=== PATIENT | male | born 1975 | race Caucasian/White ===

== ENCOUNTER 2020-11-03 15:31 | Emergency (ER) | payer OTHER, SELFPAY ==
--- NOTE | 2020-11-03 15:36 | ED.WOUNDLAC ---
HPI - Wound/Laceration General Chief Complaint: Wound/Laceration Stated Complaint: rt thumb laceration Time Seen by Provider: 11/03/20 15:36 Source: patient and RN notes reviewed History of Present Illness HPI narrative: Patient is a 45-year-old male who presents the urgent care with complaints of a laceration to the right thumb. Patient states that he had been doing repairs at a friend's house and was using a brand-new utility knife with a new blade, and sliced the right thumb. Patient states that the injury occurred approximately 3 hours ago. States that he went to another facility in [place], who wrapped the thumb but sent him on his way due to not excepting his insurance. Patient states he then went to our [place] location who turned him away because he did not have his insurance card . Patient denies of any other injuries. No other acute complaints. States that he has had a tetanus shot recently. Patient aware of the plan of care. Some parts of this dictation were generated by voice recognition software and may contain typographical and/or grammatical inaccuracies. Related Data Home Medications Medication Instructions Recorded Confirmed cyclobenzaprine [Flexeril] 10 mg PO HS 11/03/20 11/03/20 gabapentin 300 mg PO TID 11/03/20 11/03/20 oxycodone-acetaminophen 10 - 325 tablet PO TID 11/03/20 11/03/20 zolpidem 10 mg PO HS PRN 11/03/20 11/03/20 Allergies Allergy/AdvReac Type Severity Reaction Status Date / Time aspirin Allergy Unknown Nausea Verified 11/03/20 15:40 Sulfa (Sulfonamide Allergy Unknown Rash Verified 11/03/20 15:40 Antibiotics) Review of Systems Review of Systems: Narrative: CONSTITUTIONAL: Denies fever, chills, or sweats. EYES: Denies visual changes, redness, or discharge. ENT: Denies rhinorrhea, congestion, sore throat, or otalgia. CARDIOVASCULAR: Denies chest pain, palpitations, or edema. RESPIRATORY: Denies cough or dyspnea. GASTROINTESTINAL: Denies abdominal pain, nausea, vomiting, or diarrhea. GENITOURINARY: Denies dysuria or hematuria. SKIN: Reports of a laceration to the right thumb MUSCULOSKELETAL: Denies back pain, joint pain, or myalgia. NEUROLOGIC: Denies headache, numbness, or weakness. All other systems reviewed are negative, except as documented in HPI. PMFSH Comments At the time of my signature, I reviewed and agree with the nursing past medical, surgical, social, and family history. There is no relevant family history pertinent to the patient complaint. Exam Narrative: Exam Narrative: GENERAL: This is a well-nourished, well-developed patient, in no apparent distress. HEAD: normocephalic, atraumatic. EYES: PERRL. Sclera clear/white. Vision is grossly intact. EARS: External ears normal NOSE: External nose normal with no obvious nasal discharge, nares without redness, no rhinorrhea. THROAT: Mucous membranes moist NECK: Neck supple SKIN: 3 cm linear laceration noted to the ulnar aspect of the right thumb without nailbed involvement. Extending between the PIP and the MCP. NEURO: awake, alert, and oriented to person, place and time. There were no obvious focal neurologic abnormalities. EXTREMITIES: Range of motion to right thumb within normal limits with capillary refill less than 2 seconds. Positive strong right radial pulse. Course Vital Signs Vital signs: Vital Signs Temperature 99.4 F 11/03/20 15:39 Pulse Rate 122 H 11/03/20 15:39 Respiratory Rate 20 11/03/20 15:39 Blood Pressure 151/93 H 11/03/20 15:39 Pulse Oximetry 99 11/03/20 15:39 Temperature 99.4 F 11/03/20 15:45 Pulse Rate 122 H 11/03/20 15:45 Respiratory Rate 20 11/03/20 15:45 Blood Pressure 151/93 H 11/03/20 15:45 Pulse Oximetry 99 11/03/20 15:45 Reviewed-patient is informed that they may have pre-hypertension or hypertension based on a blood pressure reading in the department. I recommend the patient call the primary care provider listed on their discharge instructions o
[2020-11-03 15:39] VITALS: BP 151/93; PULSE 122; RESP 20; TEMP 37.4; O2SAT 99
[2020-11-03 15:45] VITALS: BP 151/93; PULSE 122; RESP 20; TEMP 37.4; O2SAT 99
== END 2020-11-03 16:13 | disposition home or self-care (01) ==
PROVIDERS: Emergency Provider Nurse Practitioner Family; PCP Nurse Practitioner Family
DX: S61.011A Laceration without foreign body of right thumb without damage to nail, initial encounter (principal); W26.0XXA Contact with knife, initial encounter
CPT/HCPCS: 12001; 99203; G0463

== ENCOUNTER 2024-06-29 07:46 | Day surgery (SDC) | payer OTHER, SELFPAY ==
[2024-06-24 10:18] VITALS: BMI 23.7
--- NOTE | ~2024-06-29 | XR_ITS ---
INTRAOPERATIVE FLUOROSCOPY: CLINICAL HISTORY: 49 years old Male; LEFTWARD C6-7 INJ PROCEDURE COMMENTS: Limited intraoperative fluoroscopy of the cervical spine was performed. CUMULATIVE DOSE: 2.3 mGy FLUOROSCOPY TIME: 14.6 seconds FINDINGS/IMPRESSION: Intraoperative fluoroscopic views demonstrate injection needle in good location, within the area of c linical concern. Please refer to operative note for further details. Reviewed, dictated and finalized at location A.
--- NOTE | 2024-06-29 07:57 | WPDHPUPDATE1 ---
History and Physical Update Update Date/Time: 06/29/24 07:57 History and Physical has been reviewed, including an updated exam of the patient. There are NO changes in the patient's condition. Risks, benefits, and alternatives have been discussed and questions answered. Patient agrees to proceed with procedure.
--- NOTE | 2024-06-29 07:58 | W.PM.PROC2 ---
Procedure Note - Detailed Date of Procedure 06/29/24 Pre-op Diagnosis Cervical Spondylosis Post-op Diagnosis Same Procedure Performed Leftward Cervical Interlaminar Epidural Steroid Injection at C6-7 under Fluoroscopic Guidance and with Contrast Control. Surgeon Denton Raymundo MD Anesthesia Local Description of Procedure INFORMED CONSENT: Risks, benefits and alternatives to the procedure were discussed in detail with the patient who expressed explicit understanding and consent to proceed. Patient was informed verbally and in written form regarding the risks associated with the procedure including the low risk of serious infection, bleeding/bruising, allergic reaction, nerve or organ injury, paralysis, procedural site pain or discomfort, worsening pain and/or mobility, failure to treat and/or disfigurement. The patient expressed explicit understanding and consent to proceed. All materials required for the procedure were available prior to procedure start. Site and side was marked prior to procedure and confirmed in the presence of the patient. PROCEDURE IN DETAIL: The patient was brought to the procedural suite and placed in the prone position. Patient's head was positioned and stabilized with a ProneView pillow or equivalent. Patient was made comfortable with use of pillows under the chest, hips and ankles. Skin overlying the injection site was prepared broadly with ChloraPrep applicator and draped in a sterile manner. Aseptic technique was employed throughout. The endplates of the vertebral body at the site of interest were aligned in the AP view. Slight caudad tilt and ipsilateral oblique angulation was utilized to optimize visualization of the targeted posterior intervertebral foramen at C6-7. Local anesthesia was established by infiltration with approximately 5 mL of 2% lidocaine via a 1-1/2 inch 27-gauge needle. A 20-gauge 4-inch Tuohy epidural needle was advanced intermittently until appropriate loss of resistance to air was identified via plastic loss of resistance syringe. Lateral view was used to confirm the appropriate positioning of the needle tip within the posterior epidural space. In the AP view, 2.0 mL of Omnipaque 300 contrast medium was injected after negative aspiration for CSF, blood or other bodily fluid, showing appropriate epidural spread of contrast without evidence of intravascular or intrathecal placement. After negative repeat aspiration for CSF, blood or other bodily fluid, A 4 mL solution containing 6 mg of betamethasone in sterile PF Normal Saline was injected after negative repeat aspiration. Appropriate spread of the injectate was confirmed with washout of previously injected contrast. No parasthesias were elicited. Needle was removed completely intact without difficulty. Images were saved and documented in the patient chart. Patient's skin was cleansed and sterile bandage applied. The patient tolerated the procedure well. The patient was transported to the recovery area in stable condition where they were observed for an appropriate amount of time prior to discharge, without evidence of complication. The patient was instructed to avoid excessive activity for the next 48 hours, including overhead work, reaching or extended device/computer usage. Showers only for 48 hours. They were instructed not to drive or operate heavy machinery for 24 hours. They are to monitor for severe headaches, fevers, chills, night sweats, erythema/swelling at the site or any other signs of infection, bleeding/bruising, bowel or bladder changes as well as new pain, weakness or numbness in the upper or lower extremity. Should they notice these changes, they are instructed to call our office immediately or report directly to the nearest Emergency Department if no answer or if after posted office hours. CONTRAST WASTED: 28mL Omnipaque 300. COMMENTS: patient remained purposefully quiet responding verbally but appropriately only when directly addressed througho
[2024-06-29 08:06] VITALS: BMI 24.2
[2024-06-29 08:07] VITALS: BP 150/93; PULSE 87; RESP 18; TEMP 37.2; O2SAT 98
[2024-06-29 08:21] VITALS: BP 181/87; PULSE 83; RESP 16; O2SAT 97
[2024-06-29 08:26] VITALS: BP 163/75; PULSE 78; RESP 16; O2SAT 96
[2024-06-29] MEDS: BETAMETHASONE SODIUM PHOSPHATE PF INJ 6 MG/ML VIAL INFILTRATE (08:28)
[2024-06-29 08:30] VITALS: BP 168/88; PULSE 73; RESP 18; O2SAT 98
[2024-06-29] MEDS: LIDOCAINE HCL 1% PF INJ 5 ML VIAL 4 ML XX (08:30)
== END 2024-06-29 08:46 | disposition home or self-care (01) ==
PROVIDERS: Visit Provider Anesthesiology Pain Medicine
PROC: (CPT 62321; principal; 2024-06-29 08:45)
DX: M47.812 Spondylosis without myelopathy or radiculopathy, cervical region (principal)
CPT/HCPCS: 62321; 99199

== ENCOUNTER 2024-08-25 10:04 | Outpatient (RCR) | payer OTHER, SELFPAY ==
--- NOTE | 2024-08-25 11:37 | OPREHPOC ---
Outpatient Therapy Plan of Care This is a Multidisciplinary Plan of Care that may contain components documented by all disciplines (PT, OT, and ST.) PT Problem 1 PT Problem #1 Knowledge Deficit PT Goal 1 Goal / Goal Update *indep with HEP Target Visit 8 PT Problem 2 PT Problem #2 Pain PT Goal 1 Goal / Goal Update *pt report pain rating at worst of 7/10 Target Visit 8 PT Goal 2 Goal / Goal Update * self assessment Neck Disability Index rating of 22% limitation in activity * pt report 3 headaches a week Target Visit 8 PT Problem 3 PT Problem #3 Impaired Flexibility PT Goal 1 Goal / Goal Update improve cervical rotation to L to improve ability to drive and do home & work tasks active to 50' Target Visit 8 PT Goal 2 Goal / Goal Update * pt perform 3 reps without an increase in pain reported: cervical rotation L and side bend L Target Visit 8 PT Problem 4 PT Problem #4 Impaired Strength PT Goal 1 Goal / Goal Update increase strength of cervical and thoracic musculature for improved posture and position of spine: able to perform 20 reps of strengthening exercises on mat and standing positions Target Visit 8
--- NOTE | 2024-08-25 11:37 | PTOPEVAL1 ---
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; R hand dominant; Reported Pain Level Pain Score Self Report Additional Pain Score Comments pain in neck, upper back and shoulders R and L; pain R shoulder> L; pain range in the past week 1-07/01; neck, hands numb and tingle intermittent; pain in back-- disrupts sleep; have to sleep in recliner to get neck comfortable; decrease pain: heat and rest; pain patch prescription; increase pain: activity; headaches every day, last about 1/2 day, take over the counter meds; Assessment PT Clinical Summary Marco has the diagnosis of cervical radiculopathy, into both UE's with intermittent numbness and tingling into hands. He also reports headaches, R and L shoulder and thoracic pain. Self assessment functional score with Neck Index rating of 30% limitation in activity level. The cervical injections decreased his pain for a few days and he is scheduled for another injection in a few weeks. He currently works [employer], as pain allows, in construction work. Medical history includes: chronic neck & shoulder pain, chronic back pain, ORIF to R femur and ankle With the evaluation: he has poor standing position of his spine, due to R leg is shorter and curvature of his spine; cervical increase extension; cervical rotation to L and side bend to L increase pain; R and L shoulder motions- all increase shoulder pain; Skilled PT services are indicated for modalities to decrease pain; therapeutic exercises to increase flexibility of cervical spine and improve position of neck and education for HEP and posture education. Plan of Care Interventions Electrical Stimulation,Hot Pack/Cold Pack,Manual Therapy,Mechanical Traction,Neuro Re-education, Patient/Caregiver Education,Therapeutic Activities, Therapeutic Exercise,Ultrasound,Other Other Interventions taping PT Services Indicated Yes Treatment Frequency and 1-2x/wk for 8 visits Duration These treatments will address the objective and functional deficits as defined above. The patient will be advanced safely and appropriately in order for the patient to progress towards his/her prior level of function. Additional exercises will be introduced and as well as a comprehensive home exercise program upon discharge, if needed, ?to ensure carryover of functional gains achieved in the clinic. This treatment plan has been reviewed and agreement upon by the patient.
--- NOTE | 2024-09-02 08:21 | PCPTNOTE ---
Pt. did not show for his Physical therapy appointment this date. Called and left a voicemail reminding pt. of his next upcoming appointment on 09/07/24.
--- NOTE | 2024-09-09 08:35 | PCPTNOTE ---
Pt was a no call, no show for his appointment today.
--- NOTE | 2024-09-14 08:46 | PCPTNOTE ---
Pt NS third visit today, talked to pt and offered another appt later today pt declined, reminded him of 09/17 appt day and time.
--- NOTE | 2024-09-17 10:52 | PCPTNOTE ---
4 th No call No show. I left voice mssg with pt that we have removed him from our schedule. Should he need our services in the future, please call. SHAHLA
--- NOTE | 2024-09-23 15:22 | PCPTNOTE ---
DISCHARGE PHYSICAL THERAPY 09-23-24 Dr. De Paz Mr. Arnold received the PT evaluation for the diagnosis of cervical radiculopathy on August 25. He did not show for 4 scheduled appointments, so he was discharged from PT services.
== END 2024-09-17 10:56 | disposition home or self-care (01) ==
LOC: ANHPT 10:04
PROVIDERS: Visit Provider Neurological Surgery
DX: M54.12 Radiculopathy, cervical region (principal)
CPT/HCPCS: 97012; 97161; 97530